=== PATIENT | female | born 2000 | race African-American/Black ===

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

== ENCOUNTER 2023-02-21 20:43 | Emergency (ER) | payer BC, OTHER | END 2023-02-21 21:39 | disposition home or self-care (01) | LOC: ERS 20:43 | DX: F41.0 Panic disorder [episodic paroxysmal anxiety] (principal) | CPT/HCPCS: 99283 ==

== ENCOUNTER 2023-03-21 23:54 | Emergency (ER) | payer BC, OTHER | END 2023-03-22 00:43 | disposition home or self-care (01) | LOC: ERS 23:54 | DX: Z02.79 Encounter for issue of other medical certificate (principal) | CPT/HCPCS: 99282 ==

== ENCOUNTER 2024-06-05 17:49 | Emergency (ER) | payer BC, OTHER ==
[2024-06-05] MEDS ORDERED: predniSONE 20 MG TAB ONE (18:35)
[2024-06-05] MEDS ORDERED: Ketorolac Tromethamine 30 MG (1 mL) VIAL ONE (18:35)
== END 2024-06-05 19:26 | disposition home or self-care (01) ==
LOC: ERS 17:49
DX: J10.1 Influenza due to other identified influenza virus with other respiratory manifestations (principal)
CPT/HCPCS: 71046; 87428; 96372; J1885; J7512